=== PATIENT | male | born 1945 | race Caucasian/White ===

== ENCOUNTER → 2016-10-09 | Outpatient (CLI) | payer OTHER ==
[~2016-10-09] VITALS: Ht 182.9 cm; Wt 80.7 kg
[2016-10-09 09:09] LABS: HEMOGLOBIN 7.1 gm/dl (14.0-17.5)
== END ==
LOC: OPSV 08:23
DX: S83.419A Sprain of medial collateral ligament of unspecified knee, initial encounter (principal)
CPT/HCPCS: 36415; 36430; 85014; 85018; 85049; 86850; 86900; 86901; 86920; J7050; P9037; P9040; Q0163

== ENCOUNTER → 2016-10-23 | Outpatient (CLI) | payer OTHER ==
[~2016-10-23] VITALS: Ht 182.9 cm; Wt 80.7 kg
[2016-10-23 09:09] LABS: HEMOGLOBIN 7.3 gm/dl (14.0-17.5)
== END ==
LOC: OPSV 08:30
PROVIDERS: Internal Medicine Hematology & Oncology
DX: C83.10 Mantle cell lymphoma, unspecified site (principal); Z88.0 Allergy status to penicillin; Z88.1 Allergy status to other antibiotic agents; D46.9 Myelodysplastic syndrome, unspecified
CPT/HCPCS: 36415; 36430; 85014; 85018; 85049; 86850; 86900; 86901; 86920; J7050; P9037; P9040; Q0163

== ENCOUNTER → 2016-10-29 | Outpatient (CLI) | payer OTHER, BC, MEDICARE ==
[~2016-10-29] VITALS: Ht 185.4 cm; Wt 80.7 kg
== END ==
LOC: OPSV 12:00
DX: C83.13 Mantle cell lymphoma, intra-abdominal lymph nodes (principal); D46.9 Myelodysplastic syndrome, unspecified; Z88.0 Allergy status to penicillin; Z88.1 Allergy status to other antibiotic agents
CPT/HCPCS: 36415; 36430; 86850; 86900; 86901; 86920; J7050; P9040; Q0163

== ENCOUNTER → 2016-10-31 | Outpatient (CLI) | payer OTHER | LOC: OPSV 14:24 | DX: D46.9 Myelodysplastic syndrome, unspecified (principal) | CPT/HCPCS: 36415; 36430; 86900; 86901; J7050; P9037; Q0163 ==

== ENCOUNTER → 2016-11-01 | Outpatient (CLI) | payer BC, MEDICARE | LOC: LAB 08:58 | DX: D46.9 Myelodysplastic syndrome, unspecified (principal) | CPT/HCPCS: 36415; 85049 ==

== ENCOUNTER → 2016-11-05 | Outpatient (CLI) | payer OTHER | LOC: OPSV 12:20 | DX: C83.10 Mantle cell lymphoma, unspecified site (principal); D46.9 Myelodysplastic syndrome, unspecified | CPT/HCPCS: 36415; 36430; 85049; 86850; 86900; 86901; 86920; J7050; P9037; P9040; Q0163 ==

== ENCOUNTER → 2016-11-07 | Outpatient (CLI) | payer OTHER, BC ==
[~2016-11-07] VITALS: Ht 182.9 cm; Wt 66.7 kg
== END ==
LOC: OPSV 11:20
DX: D46.9 Myelodysplastic syndrome, unspecified (principal); C83.10 Mantle cell lymphoma, unspecified site
CPT/HCPCS: 36430; J7050; P9040; Q0163

== ENCOUNTER → 2016-11-19 | Outpatient (CLI) | payer OTHER ==
[~2016-11-19] VITALS: Ht 182.9 cm; Wt 80.7 kg
== END ==
LOC: OPSV 14:05
DX: D46.9 Myelodysplastic syndrome, unspecified (principal); M30.3 Mucocutaneous lymph node syndrome [Kawasaki]
CPT/HCPCS: 36415; 36430; 85049; 86900; 86901; J7050; P9037; Q0163

== ENCOUNTER → 2016-11-19 | Outpatient (CLI) | payer OTHER, BC ==
[2016-11-19 13:01] LABS: HEMOGLOBIN 8.2 gm/dl (14.0-17.5); RED BLOOD COUNT 2.97 M/UL (4.20-5.50)
[2016-11-19 13:11] LABS: WHITE BLOOD COUNT 0.6 K/UL (4.5-11.0)
[2016-11-19 13:21] LABS: BUN/CREATININE RATIO 15 (0-10)
== END ==
LOC: LBRF 11:52
PROVIDERS: Family Medicine
DX: C83.13 Mantle cell lymphoma, intra-abdominal lymph nodes (principal)
CPT/HCPCS: 80053; 83615; 85025

== ENCOUNTER → 2016-11-26 | Outpatient (CLI) | payer OTHER | LOC: OPSV 12:00 | DX: D46.9 Myelodysplastic syndrome, unspecified (principal) | CPT/HCPCS: 36415; 36430; 85049; 86850; 86900; 86901; 86920; J7050; P9037; P9040; Q0163 ==

== ENCOUNTER → 2016-11-28 | Outpatient (CLI) | payer OTHER ==
[~2016-11-28] VITALS: Ht 182.9 cm; Wt 81.0 kg
== END ==
LOC: OPSV 12:42
DX: D46.9 Myelodysplastic syndrome, unspecified (principal)
CPT/HCPCS: 36430; J7050; P9037; Q0163

== ENCOUNTER → 2016-11-30 | Outpatient (CLI) | payer OTHER | LOC: OPSV 13:00 | DX: C83.10 Mantle cell lymphoma, unspecified site (principal); D46.9 Myelodysplastic syndrome, unspecified | CPT/HCPCS: 36415; 36430; 85049; 86900; 86901; J7050; P9037; Q0163 ==

== ENCOUNTER → 2016-12-03 | Outpatient (CLI) | payer OTHER | LOC: OPSV 11:54 | DX: D46.9 Myelodysplastic syndrome, unspecified (principal) | CPT/HCPCS: 36415; 36430; 85049; 86900; 86901; J7050; P9037; Q0163 ==

== ENCOUNTER 2016-12-07 12:53 | Outpatient (CLI) | payer OTHER | END 2016-12-07 22:56 | disposition home or self-care (01) | LOC: OPSV 12:53 | DX: D46.9 Myelodysplastic syndrome, unspecified (principal) | CPT/HCPCS: 36415; 36430; 85049; 86850; 86900; 86901; 86920; J7050; P9037; P9040; Q0163 ==